=== PATIENT | female | born 1945 | race Caucasian/White ===

== ENCOUNTER 2016-02-29 09:18 | Outpatient (CLI) | payer OTHER, BC ==
--- NOTE | 2016-02-29 11:59 | DIAGNOSTIC IMAGING REPORT ---
PROCEDURE: MR LUMBAR SPINE W/O CONTRAST INDICATION: L5-S1 RADICULOPATHY, INCREASED LOW BACK PAIN, initial encounter TECHNIQUE: Noncontrast T1, T2, and STIR sagittal images. T1 and T2 axial images. COMPARISON: None. FINDINGS: Grade 3 L5-S1 anterolisthesis. No fracture or suspicious osseous lesion. Desiccation of all the lumbar discs with minor spur formation. Normal conus. Paraspinal soft tissues are unremarkable. Left renal cyst. L1-2: Normal appearance. L2-3: Small bilateral of foraminal disc bulges with mild facet arthropathy. Mild bilateral foraminal stenosis. No spinal stenosis. L3-4: Mild broad-based disc bulge/spur complex with moderate facet arthropathy and thickening of the ligament flava. Mild bilateral foraminal stenosis. L4-5: Moderate central focal disc herniation superimposed on a mild broad-based disc bulge with moderate facet arthropathy. There is mild bilateral foraminal stenosis. No spinal stenosis L5-S1: Grade 3 anterolisthesis with bilateral L5 spondylolysis, severe facet arthropathy and thickening of the ligament flava. There is fusion of the L5 and S1 vertebral bodies. Moderate bilateral foraminal stenosis. Severe spinal stenosis. IMPRESSION: 1. Mild degenerative changes 2. Mild bilateral L2 through L3-4 foraminal stenosis 3. Moderate L4 central disc herniation with mild bilateral foraminal stenosis 4. Grade 3 anterolisthesis with fusion of the L5 and S1 vertebral bodies, moderate bilateral foraminal stenosis and severe spinal stenosis.
== END 2016-02-29 23:00 ==
LOC: MRI SRH 09:18
DX: M51.36 Other intervertebral disc degeneration, lumbar region (principal); M48.06 Spinal stenosis, lumbar region; M51.26 Other intervertebral disc displacement, lumbar region; Z98.1 Arthrodesis status